=== PATIENT | male | born 1975 | race Caucasian/White ===

== ENCOUNTER 2019-07-31 15:24 | Inpatient (IN) | payer OTHER, SELFPAY ==
[~2019-07-31] VITALS: Ht 165.1 cm; Wt 157.9 kg
[2019-07-31 16:07] LABS: PLATELET COUNT 232 x10^3mcL (130-400)
[2019-07-31 16:12] LABS: BASOPHIL % 0 % (0-2); RED CELL DISTRIBUTION WIDTH 15.8 % (11.5-14.5)
[2019-07-31 16:17] LABS: ALKALINE PHOSPHATASE 59 U/L (46-116); ALT/SGPT 54 U/L (16-63); AST/SGOT 44 U/L (15-37); BILIRUBIN TOTAL 0.7 mg/dL (0.20-1.00); CALCIUM 8.5 mg/dL (8.5-10.1); CARBON DIOXIDE 31.6 mmol/L (21-32); CHLORIDE SERUM 94 mmol/L (98-107); CREATININE SERUM 1.4 mg/dL (0.7-1.3); GFR1 58 mL/min; GLUCOSE SERUM 160 mg/dL (74-106); LACTIC DEHYDROGENASE (LDH) 489 U/L (100-190); SODIUM SERUM 133 mmol/L (136-145); TOTAL PROTEIN, SERUM 7.6 g/dL (6.4-8.2)
[2019-07-31 16:21] LABS: ALBUMIN 2.5 g/dL (3.4-5.0)
[2019-07-31 16:22] LABS: POTASSIUM SERUM 2.8 mmol/L (3.5-5.1)
[2019-07-31] MEDS ORDERED: AMLODIPINE BESY10 M2 PO (16:34)
[2019-07-31] MEDS ORDERED: HYDROCHLOROTHIA25 MG PO (16:34)
[2019-07-31] MEDS ORDERED: CARVEDILOL ER40 MG PO (16:34)
[2019-07-31] MEDS ORDERED: FORTAMET1000 MG PO (16:35)
[2019-07-31 17:31] LABS: C REACTIVE PROTEIN 21.5 mg/dL (<=0.9)
[2019-07-31 18:27] LABS: CHOLESTEROL/HDL RATIO 4.5
[2019-07-31 18:38] LABS: T3 TOTAL 0.63 ng/mL
[2019-07-31 18:51] LABS: FREE T4 1.42 ng/dL (0.76-1.46); FREE THYROXINE INDEX 2.8 ug/dL (1.4-4.5); T4(THYROXINE) 7.9 ug/dL (4.7-13.3)
[2019-07-31 19:19] LABS: microscopic required? YES; urine erythrocyte TRACE (NEGATIVE)
[2019-07-31 22:45] VITALS: BP 114/51
[2019-08-01] VITALS (22 sets, daily range): BP systolic 74–149; BP diastolic 50–82
[2019-08-01 06:07] LABS: PLATELET COUNT 247 x10^3mcL (130-400)
[2019-08-01 06:13] LABS: RED CELL DISTRIBUTION WIDTH 15.8 % (11.5-14.5)
[2019-08-01 06:24] LABS: CALCIUM 8.1 mg/dL (8.5-10.1); CARBON DIOXIDE 30.8 mmol/L (21-32); CHLORIDE SERUM 96 mmol/L (98-107); CREATININE SERUM 1.6 mg/dL (0.7-1.3); GFR1 50 mL/min; GLUCOSE SERUM 142 mg/dL (74-106); MAGNESIUM 2.3 mg/dL (1.8-2.4); PHOSPHOROUS 4.7 mg/dL (2.5-4.9); POTASSIUM SERUM 3.6 mmol/L (3.5-5.1); SODIUM SERUM 134 mmol/L (136-145)
[2019-08-01 13:41] LABS: BAND NEUTROPHIL 12 % (0-10); MONOCYTE 9 % (0-7); SEGMENTED NEUTROPHILS 72 % (37-75); rbc morphology (normal/abnorm) NORMAL (NORMAL)
[2019-08-01 13:42] LABS: PLATELET MORPHOLOGY PLATELETS NORMAL
[2019-08-02] VITALS (18 sets, daily range): BP systolic 88–132; BP diastolic 40–73
[2019-08-02 05:29] LABS: BASOPHIL % 0.1 % (0-2); PLATELET COUNT 195 x10^3mcL (130-400)
[2019-08-02 05:31] LABS: RED CELL DISTRIBUTION WIDTH 16.3 % (11.5-14.5)
[2019-08-02 05:42] LABS: CALCIUM 7.8 mg/dL (8.5-10.1); CARBON DIOXIDE 28.4 mmol/L (21-32); CREATININE SERUM 1.9 mg/dL (0.7-1.3); MAGNESIUM 2.1 mg/dL (1.8-2.4); PHOSPHOROUS 3.5 mg/dL (2.5-4.9); POTASSIUM SERUM 3.1 mmol/L (3.5-5.1)
[2019-08-03] VITALS (18 sets, daily range): BP systolic 88–124; BP diastolic 46–71; Ht 165.1 cm; Wt 157.9 kg
[2019-08-03 05:49] LABS: CALCIUM 8.1 mg/dL (8.5-10.1); CARBON DIOXIDE 29.2 mmol/L (21-32); CREATININE SERUM 2.2 mg/dL (0.7-1.3); MAGNESIUM 2.6 mg/dL (1.8-2.4); POTASSIUM SERUM 3.4 mmol/L (3.5-5.1)
[2019-08-03 06:02] LABS: C REACTIVE PROTEIN 42.1 mg/dL (<=0.9)
[2019-08-03 06:13] LABS: BASOPHIL % 0.2 % (0-2); PLATELET COUNT 209 x10^3mcL (130-400)
[2019-08-03 06:15] LABS: RED CELL DISTRIBUTION WIDTH 16.9 % (11.5-14.5)
[2019-08-04] VITALS (18 sets, daily range): BP systolic 90–116; BP diastolic 50–66
[2019-08-04 05:13] LABS: BASOPHIL % 0.3 % (0-2); PLATELET COUNT 245 x10^3mcL (130-400)
[2019-08-04 05:16] LABS: RED CELL DISTRIBUTION WIDTH 16.7 % (11.5-14.5)
[2019-08-04 05:42] LABS: CALCIUM 7.9 mg/dL (8.5-10.1); CARBON DIOXIDE 27.1 mmol/L (21-32); CREATININE SERUM 1.9 mg/dL (0.7-1.3); MAGNESIUM 2.9 mg/dL (1.8-2.4); PHOSPHOROUS 3.5 mg/dL (2.5-4.9); POTASSIUM SERUM 3.5 mmol/L (3.5-5.1)
[2019-08-05] VITALS (17 sets, daily range): BP systolic 89–125; BP diastolic 44–66
[2019-08-05 05:41] LABS: BASOPHIL % 0.8 % (0-2); PLATELET COUNT 272 x10^3mcL (130-400)
[2019-08-05 05:51] LABS: RED CELL DISTRIBUTION WIDTH 16.9 % (11.5-14.5)
[2019-08-05 05:52] LABS: CALCIUM 7.9 mg/dL (8.5-10.1); CARBON DIOXIDE 30.2 mmol/L (21-32); CREATININE SERUM 1.7 mg/dL (0.7-1.3); MAGNESIUM 3.3 mg/dL (1.8-2.4); PHOSPHOROUS 4.6 mg/dL (2.5-4.9); POTASSIUM SERUM 3.5 mmol/L (3.5-5.1)
[2019-08-05 06:00] LABS: C REACTIVE PROTEIN 44.9 mg/dL (<=0.9)
[2019-08-06 00:42] VITALS: BP 73/36
== END 2019-08-06 05:48 | disposition expired | DRG 870 ==
LOC: ED 15:24 → EDBD 15:24 → ED 15:24 → IC 17:45
PROVIDERS: Emergency Medicine; Internal Medicine; ADMIT Family Medicine
PROC: 5A1955Z Respiratory Ventilation, Greater than 96 Consecutive Hours (ICD-10-PCS; principal; 2019-07-31)
PROC: 0BH17EZ Insertion of Endotracheal Airway into Trachea, Via Natural or Artificial Opening (ICD-10-PCS; 2019-07-31)
PROC: 02HV33Z Insertion of Infusion Device into Superior Vena Cava, Percutaneous Approach (ICD-10-PCS; 2019-08-01)
PROC: B548ZZA Ultrasonography of Superior Vena Cava, Guidance (ICD-10-PCS; 2019-08-01)
PROC: 5A12012 Performance of Cardiac Output, Single, Manual (ICD-10-PCS; 2019-08-01)
PROC: 30233K1 Transfusion of Nonautologous Frozen Plasma into Peripheral Vein, Percutaneous Approach (ICD-10-PCS; 2019-08-05)
DX: A41.89 Other specified sepsis (principal); U07.1 COVID-19; J96.01 Acute respiratory failure with hypoxia; N17.0 Acute kidney failure with tubular necrosis; R65.21 Severe sepsis with septic shock; J12.89 Other viral pneumonia; E87.1 Hypo-osmolality and hyponatremia; Z68.43 Body mass index [BMI] 50.0-59.9, adult; E11.9 Type 2 diabetes mellitus without complications; I10 Essential (primary) hypertension; Z83.3 Family history of diabetes mellitus; E87.6 Hypokalemia; E66.9 Obesity, unspecified; Z71.3 Dietary counseling and surveillance; E87.8 Other disorders of electrolyte and fluid balance, not elsewhere classified; I46.9 Cardiac arrest, cause unspecified
CPT/HCPCS: 36556; 36600; 82962; 83880; 84439; 85378; 87804; A4628; C9113; G0378; J0456; J0696; J1642; J1644; J1650; J2060; J2250; J2543; J2704; J3010; J3370; J3480; J3490; J3590; J7030; J7040; J7050; J7060; J8597; Q0092; Q0163